=== PATIENT | male | born 2000 | race American Indian/Alaskan Native ===

== ENCOUNTER 2021-09-26 20:49 | Emergency (ER) | payer SELFPAY ==
[2021-09-26 21:06] VITALS: BP 151/76
--- NOTE | 2021-09-26 22:38 | XRay Report ---
RIGHT HAND 3 VIEW(S) INDICATION / CLINICAL INFORMATION: INJURY COMPARISON: None available. FINDINGS: BONES / JOINT(S): No acute fracture or subluxation. No significant arthritis. SOFT TISSUES: No significant abnormality. ADDITIONAL FINDINGS: None. IMPRESSION: 1. No acute fracture. No significant abnormality. Signer Name: Franklin Albright II, MD Signed: 09/26/2021 10:33 PM Workstation Name: [id number]
== END 2021-09-26 23:44 | disposition left against medical advice (07) ==
LOC: ED 20:49
DX: R22.31 Localized swelling, mass and lump, right upper limb (principal); Z53.21 Procedure and treatment not carried out due to patient leaving prior to being seen by health care provider